=== PATIENT | female | born 1945 | race Caucasian/White ===

== ENCOUNTER 2025-02-28 07:49 | Outpatient (AMB) | payer MEDICARE, SELFPAY ==
--- NOTE | 2025-02-28 07:41 | MHC.OFFVIS ---
Vital Signs 02/28/25 07:43 Height 5 ft 5 in Weight 156 lb 4 oz BMI 26.0 BP 116/78 Blood Pressure Location Rt brachial Position Sitting Pulse 76 Pulse Source Pulse Oximeter Pulse Oximetry (%) 97 Oxygen Delivery Method Room Air Intake Visit Reasons: ENP - Tremor of R hand (CONF.) Intake Note: Tremor of Rt hand Underwater Roboticist Required: No Accompanied by: Self / Same As Patient Allergies acetaminophen (From Percocet) Allergy (Unknown, Verified 02/28/25 07:41) Nausea and Vomiting oxycodone (From Percocet) Allergy (Unknown, Verified 02/28/25 07:41) Nausea and Vomiting propoxyphene Allergy (Unknown, Verified 02/28/25 07:41) Nausea and Vomiting Medication List - Last Reconciled 02/28/25 by Dianne Garcia MD wouvcbrfgm-qgyoksfbtruvf-fyte 50-300-40 mg 1 cap PO Q4-6H PRN cholecalciferol (vitamin D3) 50 mcg PO DAILY diazepam (Valium) 5 mg PO BEDTIME PRN escitalopram oxalate 10 mg PO DAILY multivitamin 1 tab PO DAILY naproxen 500 mg PO BID omeprazole 40 mg PO DAILY turmeric mg PO zoledronic cawp-srxnxvol-xrapz 5 mg/100 mL (Reclast) ea IV HPI Comments Details: 80y/o Right handed female comes for evaluation of tremors in her right hand about 6 mths ago . Now she also feels some tremors in her left hand . It is mostly with action and posture. she has cervical and lumbar issues with surgeries . Speech- normal No drooling Memory- mild sleep- has trouble falling asleep , snoring , hypersomnia- had Sleep study 10 years ago - diagnosed with MILTON - tried cPAP but could not tolerate she also has vivid dreams. No acting out she has depression and anxiety since her - on escitalopram Hand writing- messy Utensils- normal No problems with personal hygiene , shower Gait is good she has friend with MS and was helping her get into the car she tripped on the curb and fell - 3-4 weeks ago - no increased headaches. No double vision or dizziness. she is having some issues with right eye and has blurred vision and has scotomas Her father had tremors No exposure to neuroleptics, lthium depakote etc. [facility] Medical History (Updated 02/28/25 @ 09:24 by Dianne Garcia MD) Coarse tremors Occasional tremors Dyslipidemia Vitamin D deficiency Migraine headache Insomnia Osteoporosis Spinal stenosis Arthritis Breast cancer Cervical spondylosis Osteoarthritis cervical spine Compression fracture of lumbar vertebra Surgical History Hx of tonsillectomy H/O kyphoplasty Total knee replacement status History of lumpectomy History of total left hip replacement History of total right hip replacement Family History Father CHF (congestive heart failure) Mother Esophageal cancer Social History Alcohol intake: current Comment: socially Patient Tobacco Use Status: Former Tobacco user Physical Exam Vital Signs: Last Vital Signs Pulse 76 02/28/25 07:43 BP 116/78 02/28/25 07:43 Pulse Ox 97 02/28/25 07:43 Oxygen Delivery Method Room Air 02/28/25 07:43 BMI result Body Mass Index 26.0 Const Orientation/consciousness: patient oriented x3 Eyes Pupils: Equal, round and reactive pupils present Neuro Other: Mild Right postural tremors Cog wheel rigidity 1 + on right Gait normal Normal voice FFM and foot taps normal General: patient oriented x3, moves all extremities and no focal motor deficits Cranial nerves: Yes Facial sensation intact/muscles of mastication intact, Yes Equal, round and reactive pupils present, Yes Bilaterally intact EOM present, Yes Nystagmus not present, Yes Normal facial strength present, Yes Midline tongue present and Yes Ability to bilaterally elevate shoulders present Cognition (Neuro): normal cognition Gait exam (Neuro): Antalgic gait present Motor exam (neuro): 5/5 motor strength present throughout Deep tendon reflexes (DTR's): Right triceps reflex intensity grade: 1+, Left triceps reflex intensity grade: 1+, Rt Biceps (C5, C6): 1+, Left biceps reflex intensity grade: 1+, Right brachioradialis reflex intensity grade: 1+, Left brachioradialis reflex intensity grade: 1+, Right patellar reflex intensity grade: 1+ and Left patellar reflex intensity grade: 1+ Coordination: ljjqty-ui-dymh test normal Assessment & Plan Assessment & Plan (1) Coarse tremors: Comment: ? senile tremors Code(s): G25.2 - Other specified forms of tremor Category: Medical Plan I will evaluate her with MRI will hold off on medications for now No evidence of parkinsons on todays visit. Orders: Orders MR head/brain wo con Today R25.1 - Tremor, unspecified Coding Level of Care Code New Pt Level 4 (36050) Diagnoses Coarse tremors G25.2
[2025-02-28 07:43] VITALS: BP 116/78; PULSE 76; O2SAT 97; BMI 26.0
--- OUTSIDE RECORDS SUMMARY | 2025-02-28 07:53 | XMS_ITS | Clinical Summary ---
Author Organization [facility] Address [address] [place] [address] Care Team Providers Care Veneer Jointer Helper Name Role Phone Cleveland Heaton MD Primary Care Provider + [phone] Allergies No known active allergies Medications Medication Sig Dispensed Refills Start Date End Date Status Awwnezslgh-Ukguhng-Nx ffeine (FIORINAL PO) Take by mouth. 0 Active Naproxen (NAPROSYN PO) Take by mouth. 0 Active DiazePAM (VALIUM PO) Take by mouth. 0 Active PredniSONE 10 MG (21) TBPK Take by mouth. 0 Active Cholecalciferol (VITAMIN D3) 5000 UNITS TABS Take by mouth. 0 Active dexamethasone (DECADRON) 4 MG tablet Take 1 tablet (4 mg total) by mouth 2 (two) times a day with meals. 20 tablet 1 12/16/2018 Active Multiple Vitamin (MULTIVITAMIN ADULT PO) Take by mouth. 0 Active Coenzyme Q10 (COQ10 PO) Take by mouth. 0 Active Cyanocobalamin (vitamin B-12) 100 MCG TABS Take by mouth. 0 Active zoledronic acid (Reclast) 5 MG/100ML SOLN IVPB Inject 100 mL (5 mg total) into the vein once. 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 breast 11/06/2016 Social History Tobacco Use Types Packs/Day Years Used Date Smoking Tobacco: Never Smokeless Tobacco: Never Alcohol Use Standard Drinks/Week Comments Yes 0 (1 standard drink = 0.6 oz pur e alcohol) socially Sex and Gender Information Value Date Recorded Sex Assigned at Not on file Gender Identity Not on file Sexual Orientation Not on file Job Start Date Occupation Industry Not on file Not on file Not on file Last Filed Vital Signs Vital Sign Reading Time Taken Comments Blood Pressure 141/69 01/28/2023 11:12 AM EDT Pulse 81 01/28/2023 11:12 AM EDT Temperature 36.8 C (98.2 F) 01/28/2023 11:12 AM EDT Respiratory Rate 20 09/30/2021 10:26 AM EDT Oxygen Saturation 98% 01/28/2023 11:12 AM EDT Inhaled Oxygen Concentration - - Weight 70.5 kg (155 lb 6.4 oz) 01/28/2023 11:12 AM EDT Height 165.1 cm (5' 5 ) 01/28/2023 11:12 AM EDT Body Mass Index 25.86 01/28/2023 11:12 AM EDT Plan of Treatment Health Maintenance Due Date Last Done Comments COVID-19 Vaccine (#1) 1950 Pneumococcal Vaccine (1 of 2 - PCV) 1951 Depression Screening 1957 Preventative Health Evaluation 1963 DTap / Tdap / Td (1 - Tdap) 02/06/1964 Shingrix-Zoster Vaccine (1 of 2) 02/06/1964 Fall Risk Assessment 2010 Osteoporosis Screening (DEXA Scan) 2010 RSV Adult > 60+ Yrs or Pregn ant (1 - 1-dose 75+ series) 02/06/2020 Influenza Vaccine (#1) 2024 Hepatitis B Vaccines Aged Out No long er eligible based on patient's age to complete this topic RSV Ped < 20 months Aged Out No longe r eligible based on patient's age to complete this topic Care Teams Veneer Jointer Helper Relationship Specialty Start Date End Date Cleveland Heaton MD PCP - General Internal Medicine 11/06/16
--- OUTSIDE RECORDS SUMMARY | 2025-02-28 07:53 | XMS_ITS | Clinical Summary ---
Author Organization [facility] Address [address] [place] [address] Phone Care Team Providers Care Frame Catcher Name Role Phone Cleveland Heaton MD Primary Care Provider + [phone] Allergies No known active allergies Medications butalbital/aspiri n/caffeine (FIORINAL ORAL) Take by mouth. Active cholecalciferol (VITAMIN D-3) 5,000 Units tablet Take by mouth. Active coenzyme Q-10 10 mg capsule Take by mouth. Active diazepam (VALIUM ORAL) Take by mouth. Active multivit-min/iron /folic acid/K (ADULTS MULTIVITAMIN ORAL) Take by mouth. Active naproxen (NAPROSYN ORAL) Take by mouth. Active zoledronic acid (RECLAST) 5 mg/100 mL piggyback Inject 100 mL (5 mg total) into the vein once. Yearly Active escitalopram (LEXAPRO) 10 mg tablet Take 1 tablet (10 mg total) by mouth 1 (one) time each day. 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 (CMS/HCC V24, CMS/HCC V28) 11/06/2016 Encounters Date Type Department Care Team Description 01/26/2025 7:47 AM EDT - 01/26/2025 11:59 PM EDT Hospital Encounter [facility] MRI [address] [place] [address] Other specified diseases of pancreas Discharge Disposition: Home or Self Care 12/12/2024 1:35 PM EDT - 12/12/2024 11:59 PM EDT Hospital Encounter [facility] [address] [place] [phone] Malignant neoplasm of central portion of left female breast, unspecified estrogen receptor status ([facility] V24, [facility] V28); Encounter for screening mammogram for malignant neoplasm of breast Discharge Disposition: Home or Self Care from Last 3 Months Surgical History Surgery Date Site/Laterality Comments TOTAL KNEE ARTHROPLASTY PROCEDURE:TOTAL KNEE ARTHROPLASTY STEREOTACTIC CORE BIOPSY Left BREAST LUMPECTOMY 03/29/2005 - 03/28/2006 Left Medical History Medical History Date Comments Migraines DX:Migraines Breast cancer ([facility] V24, [facility] V28) DX:Breast cancer ([facility]) Social History Tobacco Use Types Packs/Day Years Used Date Smoking Tobacco: Never Smokeless Tobacco: Never Alcohol Use Standard Drinks/Week Comments Yes 0 (1 standard drink = 0.6 oz pur e alcohol) Comments No Sex and Gender Information Value Date Recorded Sex Assigned at Not on file Legal Sex Female 1:20 AM EST Gender Identity Not on file Sexual Orientation Not on file Obstetrics History Para Term AB IAB SAB Ectopic Multiple Livin g Live Births 0 Last Filed Vital Signs Vital Sign Reading Time Taken Comments Blood Pressure 129/66 06/13/2024 10:30 AM EDT Pulse 70 06/13/2024 10:30 AM EDT Temperature 37.2 C (99 F) 06/13/2024 10:30 AM EDT Respiratory Rate - - Oxygen Saturation 97% 06/13/2024 10:30 AM EDT Inhaled Oxygen Concentration - - Weight 70.3 kg (155 lb) 12/12/2024 2:04 PM EDT Height 165.1 cm (5' 5 ) 12/12/2024 2:04 PM EDT Body Mass Index 25.79 12/12/2024 2:04 PM EDT Plan of Treatment Upcoming Encounters Date Type Department Care Team (Late st Contact Info) Description 06/14/2025 9:30 AM EDT Office Visit [facility] Hematology Oncology [address] [place] [phone] Katherin Dooley DO [address] [place] [address] Health Maintenance Due Date Last Done Comments DTaP,Tdap,and Td Vaccines (1 - Tdap) 02/06/1964 Pneumococcal Vaccine: 50+ Years (1 of 2 - PCV) 02/06/1964 Zoster Vaccines (1 of 2) 02/06/1964 RSV Immunization Adult Patients (1 - 1-dose 75+ series) 02/06/2020 Falls Risk Assessment 03/05/2022 Medicare Annual Wellness Visit 03/05/2022 Social Influencers of Health Screening 03/05/2022 Depression Screening 03/29/2024 COVID-19 Vaccine ( season) 2024 01/30/2022, 07/15/2021, 12/31/2020, Additional history exists Osteoporosis Screening (Bone Density Screening) 12/08/2033 12/09/2023, 10/16/2021, 05/18/2018 Influenza Vaccine Completed 01/23/2025, , 01/01/2023, Additional history exists HIB Vaccines Aged Out No longer eligi ble based on patient's age to complete this topic HPV Vaccines Aged Out No longer eligi ble based on patient's age to complete this topic Hepatitis A Vaccines Aged Out No long er eligible based on patient's age to complete this topic Hepatitis B Vaccines Aged Out No long er eligible based on patient's age to complete this topic IPV Vaccines Aged Out No longer eligi ble based on patient's age to complete this topic MMR Vaccines Aged Out No longer eligi ble based on patient's age to complete this topic Meningococcal ACWY Vaccine Aged Out N o longer eligible based on patient's age to complete this topic Meningococcal B Vaccine Aged Out No l onger eligible based on patient's age to complete this topic RSV Immunization Patients Under 20 months Aged Out No longer eligible based on patient's age to complete this topic Varicella Vaccines Aged Out No longer eligible based on patient's age to complete this topic Procedures Procedure Name Priority Date/Time Associated Diagnosis Comments MR ABDOMEN WO AND W CONTRAST Routine 01/26/2025 10:35 AM EDT Other specified diseases of pancreas MG MAMMO DIGITAL SCREENING W DAVID BILAT Routine 12/12/2024 2:24 PM EDT Malignant neoplasm of central portion of left female breast, unspecified estrogen receptor status (CMS/HCC V24, CMS/HCC V28) Encounter for screening mammogram for malignant neoplasm of breast MAGNUS DEXA AXIAL SKELETON Routine 12/09/2023 8:48 AM EDT Age-related osteoporosis without current pathological fracture from Last 3 Months or Most Recently Relevant to Health Maintenance Results * MR Abdomen wo and w Contrast (01/26/2025 10:35 AM EDT) Anatomical Region Laterality Modality Body Magnetic Resonan ce 01/30/2025 5:22 PM EST Impressions 01/31/2025 11:32 AM EST The pancreas is abnormal. I suspect there has been a previous episode of pancreatitis or injury with subsequent localized atrophy involving a segment of the pancreatic body. There is no discrete mass at the change in caliber. There are some prominent pancreatic duct radicals at the change in caliber. The appearance is similar to 03/11/22. -------- FINAL REPORT -------- Dictated By: Mendez Forrester Dictated Date: 01/30/2025 17:22 ET Assigned Physician: Mendez Forrester Reviewed and Electronically Signed By: Mendez Forrester Signed Date: 01/31/2025 11:32 ET Workstation ID: [id number] Transcribed By: Self Edit Transcribed Date: 01/30/2025 17:37 ET Narrative 01/31/2025 11:32 AM EST EXAMINATION: MRI ABDOMEN WITHOUT AND WITH IV CONTRAST CLINICAL INFORMATION: Pancreatic mass. The report of chest CT performed at [facility] 01/18/25 describes a 2.6 cm soft tissue density nodule in the pancreatic body with a background of pancreatic fatty atrophy COMPARISON: Previous CT from [facility] has been requested. Comparison with portions of CT 01/06/24 and 03/11/[address] performed without contrast 01/18/25 has become available. TECHNIQUE: Anatomic and fluid sensitive MR sequences targeting the region of the pancreas was obtained on a high-field platform. MRCP was performed. Imaging before and after the IV administration of contrast. Amount of IV contrast: 15 mL Type of contrast: Dotarem Volume of contrast discarded: 0 mL FINDINGS: LIVER: The right lobe of the liver measures 15.0 cm. The liver contour appears smooth. The background hepatic signal appears homogeneous. There may be some fatty change in the liver. There is no suspicious focal liver lesion. BILIARY TRACT: There is no cholelithiasis. There is no biliary dilation. MRCP: There is no choledocholithiasis or biliary stricture. The pancreatic duct is uniform caliber in the pancreatic head, neck and proximal body. There is some prominence of the secondary pancreatic duct radicals in the pancreatic distal body. There is localized pancreatic atrophy in the distal pancreatic body. There is no discrete mass demonstrated at the change in caliber. SPLEEN: No suspicious abnormality. PANCREAS: There is no discrete pancreatic mass. As described there is uniform smooth pancreatic duct in the pancreatic head, neck and proximal body. There is some prominence of the pancreatic duct radicals in the distal pancreatic body. There is some segmental atrophy of the pancreas and the distal pancreatic body. There is some parenchyma present in the pancreatic tail. No peripancreatic fluid collection. ADRENAL GLANDS: No suspicious abnormality. KIDNEYS: There are parapelvic cysts. There is no suspicious solid renal mass. The kidneys enhance symmetrically. GASTROINTESTINAL TRACT: No definite bowel wall thickening. No suspicious abnormality of the stomach. ABDOMINAL WALL: No significant hernia is appreciated. LYMPHOVASCULAR STRUCTURES AND FLUID: There is no abdominal aortic aneurysm. There are no enlarged lymph nodes. There is no free intraperitoneal fluid. MUSCULOSKELETAL: There are endplate compression deformities at multiple levels. There may have been previous opaque cement placement. VISUALIZED LOWER CHEST: No suspicious abnormality demonstrated Procedure Note Mendez Forrester MD - 01/31/2025 EXAMINATION: MRI ABDOMEN WITHOUT AND WITH IV CONTRAST CLINICAL INFORMATION: Pancreatic mass. The report of chest CT performed at [facility] 01/18/25describes a 2.6 cm soft tissue density nodule in the pancreatic body witha background of pancreatic fatty atrophy COMPARISON: Previous CT from [facility] has been requested. Comparison with portionsof CT 01/06/24 and 03/11/[address] performed without contrast 01/18/25 has becomeavailable. TECHNIQUE: Anatomic and fluid sensitive MR sequences targeting the region of thepancreas was obtained on a high-field platform. MRCP was performed. Imaging before and after the IV administration of contrast. Amount of IV contrast: 15 mL Type of contrast: Dotarem Volume of contrast discarded: 0 mL FINDINGS: LIVER: The right lobe of the liver measures 15.0 cm. The liver contourappears smooth. The background hepatic signal appears homogeneous. There may be some fatty change in the liver. There is no suspicious focal liver lesion. BILIARY TRACT: There is no cholelithiasis. There is no biliarydilation. MRCP: There is no choledocholithiasis or biliary stricture. Thepancreatic duct is uniform caliber in the pancreatic head, neck andproximal body. There is some prominence of the secondary pancreatic ductradicals in the pancreatic distal body. There is localized pancreaticatrophy in the distal pancreatic body. There is no discrete massdemonstrated at the change in caliber. SPLEEN: No suspicious abnormality. PANCREAS: There is no discrete pancreatic mass. As described there isuniform smooth pancreatic duct in the pancreatic head, neck and proximalbody. There is some prominence of the pancreatic duct radicals in thedistal pancreatic body. There is some segmental atrophy of the pancreasand the distal pancreatic body. There is some parenchyma present in thepancreatic tail. No peripancreatic fluid collection. ADRENAL GLANDS: No suspicious abnormality. KIDNEYS: There are parapelvic cysts. There is no suspicious solid renalmass. The kidneys enhance symmetrically. GASTROINTESTINAL TRACT: No definite bowel wall thickening. No suspiciousabnormality of the stomach. ABDOMINAL WALL: No significant hernia is appreciated. LYMPHOVASCULAR STRUCTURES AND FLUID: There is no abdominal aorticaneurysm. There are no enlarged lymph nodes. There is no freeintraperitoneal fluid. MUSCULOSKELETAL: There are endplate compression deformities at multiplelevels. There may have been previous opaque cement placement. VISUALIZED LOWER CHEST: No suspicious abnormality demonstrated IMPRESSION: The pancreas is abnormal. I suspect there has been a previous episode ofpancreatitis or injury with subsequent localized atrophy involving asegment of the pancreatic body. There is no discrete mass at the change incaliber. There are some prominent pancreatic duct radicals at the changein caliber. The appearance is similar to 03/11/22. -------- FINAL REPORT -------- Dictated By: Mendez Forrester Dictated Date: 01/30/2025 17:22 ET Assigned Physician: Mendez Forrester Reviewed and Electronically Signed By: Mendez Forrester Signed Date: 01/31/2025 11:32 ET Workstation ID: [id number] Transcribed By: Self Edit Transcribed Date: 01/30/2025 17:37 ET Cleveland Heaton MD IMG MRI PROCEDURES Final Res ult * MG Mammo Digital Screening w David bilat (12/12/2024 2:24 PM EDT) Anatomical Region Laterality Modality Breast Bilateral Mammography 12/12/2024 3:45 PM EDT Impressions 12/12/2024 3:47 PM EDT No evidence of breast malignancy. BI-RADS CATEGORY: 2 - BENIGN RECOMMENDATION: Screening bilateral mammogram is recommended in 1 year. Mammo Location: [facility], [address] [place] [address], [facility], . -------- FINAL REPORT -------- Dictated By: Mala Doyle Dictated Date: 12/12/2024 15:45 ET Assigned Physician: Mala Doyle Reviewed and Electronically Signed By: Mala Doyle Signed Date: 12/12/2024 15:47 ET Workstation ID: [id number] Transcribed By: Self Edit Transcribed Date: 12/12/2024 15:45 ET Narrative 12/12/2024 3:47 PM EDT CLINICAL: 79 years old, Female, routine annual exam. History of left-sided breast cancer and 2006 COMPARISON: Multiple prior studies dating back to 2019. TECHNIQUE: Bilateral MLO and CC views were obtained digitally with 3-D mammogram (digital breast tomosynthesis). Computer-aided detection was utilized in evaluation of this exam (CAD). FINDINGS: There is no evidence of suspicious mass or architectural distortion. No worrisome calcifications are evident. There has been no significant change from prior exam(s). Stable postsurgical changes in the left breast. BREAST DENSITY: A - The breasts are almost entirely fatty. Procedure Note Mala Doyle MD - 12/12/2024 CLINICAL: 79 years old, Female, routine annual exam. History ofleft-sided breast cancer and 2006 COMPARISON: Multiple prior studies dating back to 2019. TECHNIQUE: Bilateral MLO and CC views were obtained digitally with 3-Dmammogram (digital breast tomosynthesis). Computer-aided detection wasutilized in evaluation of this exam (CAD). FINDINGS: There is no evidence of suspicious mass or architectural distortion. Noworrisome calcifications are evident. There has been no significantchange from prior exam(s). Stable postsurgical changes in the leftbreast. BREAST DENSITY: A - The breasts are almost entirely fatty. IMPRESSION: No evidence of breast malignancy. BI-RADS CATEGORY: 2 - BENIGN RECOMMENDATION: Screening bilateral mammogram is recommended in 1 year. Mammo Location: [facility], [address] [place] [address], [id number], . -------- FINAL REPORT -------- Dictated By: Mala Doyle Dictated Date: 12/12/2024 15:45 ET Assigned Physician: Mala Doyle Reviewed and Electronically Signed By: Mala Doyle Signed Date: 12/12/2024 15:47 ET Workstation ID: [id number] Transcribed By: Self Edit Transcribed Date: 12/12/2024 15:45 ET us Katherin Dooley DO IMG BI PROCEDURES Fin al Result * MAGNUS DEXA AXIAL SKELETON (12/09/2023 8:48 AM EDT) Anatomical Region Laterality Modality Mammography 12/02/2023 1:41 PM EDT Narrative 12/09/2023 8:48 AM EDT [facility] Diagnostic Imaging Department [address] [place] [address] [id number] Patient: JANET MOTAO.B./Age/Sex: 1945 - 78 - F Unit#: [id number] Location/Status: SPDIMA/REG I [facility]em[facility] Ordering Physician: FRANCISCO COSTA MD [facility] Dexa Axial Skeleton - 12/02/23 - 149 Report Status:Signed HISTORY: The patient is a 78-year-old postmenopausal female with clinical concern for metabolic bone disease. FINDINGS: Dual energy x-ray absorptiometry of the lumbar spine and left femur is performed. The mean bone mineral density at L1-3 (with the exclusion of L2) is 1.282 gm/cm2 which is 110% of that of young normals and 132% of that of age matched controls. This yields a T-score of 1.0 and a Z-score of 2.6 and there is therefore no evidence of osteoporosis or osteopenia here. The mean bone mineral density of the left femur is 0.815 gm/cm2 which is 81% of that of young normals and 105% of that of age matched controls. This yields a T-score of -1.5 and a Z-score of 0.3 which is diagnostic of osteopenia. However, the T-score of the left femoral neck is -2.5 which is diagnostic of osteoporosis. IMPRESSION: 1. Osteoporosis. There has been an increase of 13.3% in bone mineral density in the lumbar spine since the prior examination of 10/15/2021. There has been a decrease of 3.1% in bone mineral density in the left femur. 2. FRAX analysis yields a 10-year probability of major osteoporotic fracture of 19.6% and a 10-year probability of hip fracture of 6.9%. Code 55014 Dictating Physician: REBECCA HAM MD Electronically Signed by: REBECCA HAM MD [facility] Date/Time: 12/09/23845 Sign date/Time: 12/09/2348 Procedure Note Rebecca Ham MD - 01/12/2024 [facility] Diagnostic Imaging Department [address] [place] [id number] Patient: HOLGER HERRERAJANET /Age/Sex: 1945 78 - F Unit#: [id number] Location/Status: [facility] CLI Mnemonic/Ordering Site: [facility] Ordering Physician: FRANCISCO COSTA MD [facility] Dexa Axial Skeleton - 12/02/23 - 1625 Report Status:Signed HISTORY: The patient is a 78-year-old postmenopausal female withclinical concern for metabolic bone disease. FINDINGS: Dual energy x-ray absorptiometry of the lumbar spine and leftfemur is performed. The mean bone mineral density at L1-3 (with the exclusion ofL2) is 1.282 gm/cm2 which is 110% of that of young normals and 132% of that ofage matched controls. This yields a T-score of 1.0 and a Z-score of 2.6 andthere is therefore no evidence of osteoporosis or osteopenia here. The mean bone mineral density of the left femur is 0.815 gm/cm2 which is81% of that of young normals and 105% of that of age matched controls. Thisyields a T-score of -1.5 and a Z-score of 0.3 which is diagnostic of osteopenia.However, the T-score of the left femoral neck is -2.5 which is diagnostic of osteoporosis. IMPRESSION: 1. Osteoporosis. There has been an increase of 13.3% in bone mineraldensity in the lumbar spine since the prior examination of 10/15/2021. There hasbeen a decrease of 3.1% in bone mineral density in the left femur. 2. FRAX analysis yields a 10-year probability of major osteoporoticfracture of 19.6% and a 10-year probability of hip fracture of 6.9%. Code 24688 Dictating Physician: REBECCA HAM MD Electronically Signed by: REBECCA HAM MD Dic Date/Time: 12/09/23845 Sign date/Time: 12/09/23847 Francisco Costa MD IMG BI PROCEDURES Fi nal Result from Last 3 Months or Most Recently Relevant to Health Maintenance Insurance MEDICARE [facility] Care Teams Frame Catcher Relationship Specialty Start Date End Date Cleveland Heaton MD [address] [place] [address] PCP - General Internal Medicine 07/27/06
--- OUTSIDE RECORDS SUMMARY | 2025-02-28 07:53 | XMS_ITS | Clinical Summary ---
Author Organization [facility] Address [address] [place] [address] Care Team Providers Care Music Composition Teacher Name Role Phone Cleveland Heaton MD Primary Care Provider [phone] Social History Tobacco Use Types Packs/Day Years Used Date Smoking Tobacco: Never Assessed Comments Unknown Sex and Gender Information Value Date Recorded Sex Assigned at Female 01/30/2025 10:30 AM EST Legal Sex Female 5:02 PM EST Gender Identity Female 01/30/2025 10:30 AM EST Sexual Orientation Other 01/30/2025 10 :30 AM EST Plan of Treatment Upcoming Encounters Date Type Department Care Team (Late st Contact Info) Description 04/25/2025 3:30 PM EST Consult [facility] [address] [phone] Cheikh Hurt MD [address] [facility] [address] [place] [address] Health Maintenance Due Date Last Done Comments Advance Care Planning 1945 DTaP/Tdap/Td Vaccines (1 - Tdap) 02/06/1964 Pneumococcal Vaccines 50+ (1 of 1 - PCV) 1995 Zoster (Shingles) Vaccine (1 of 2) 1995 DXA Bone Density (Females,Ag es 65 and older) 2010 RSV Vaccine 50 years and old er and Patients (1 - 1-dose 75+ series) 02/06/2020 Influenza Vaccine 10/27/2024 COVID-19 Vaccine ( - 2023-2 5 season) 2024 Hepatitis B Vaccines Aged Out No long er eligible based on patient's age to complete this topic Procedures Procedure Name Priority Date/Time Associated Diagnosis Comments CT SCAN EXTERNAL RESULT Routine 01/18/2025 9:03 AM EDT from Last 3 Months Results * CT Scan External Result (01/18/2025 9:03 AM EDT) Anatomical Region Laterality Modality Computed Tomogra phy us External Provider MD PEDRO CT ORDERABLES Final Res ult from Last 3 Months Insurance Care Teams Music Composition Teacher Relationship Specialty Start Date End Date Cleveland Heaton MD [address] [place] [phone] PCP - General Internal Medicine 01/30/25
--- OUTSIDE RECORDS SUMMARY | 2025-02-28 07:53 | XMS_ITS | Clinical Summary ---
Author Organization [facility] Address [address] [facility] [address] [place] [phone] Phone Care Team Providers Care Fingerprint Expert Name Role Phone Cleveland Heaton MD Primary Care Provider Allergies Active Allergy Reactions Criticality Noted Date Comments Meperidine GI Upset 09/16/2005 Percocet (Oxycodone-Acetaminophen) GI Upset 0 09/16/2005 Medications No known medications Active Problems Problem Noted Date Diagnosed Date Arthritis 09/16/2005 Overview (05/19/2014): Arthritis Migraine 09/16/2005 Overview (05/19/2014): Migraine headache 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 Not on sebas e 06/09/2024 Are you concerned about learning? Not on file 06/09/2024 No 06/09/2024 No 06/09/2024 Digital Access Answer Date Recorded No 06/09/2024 No 06/09/2024 Reliable internet access at home? Not on file 06/09/2024 Device with a working camera? Not on file Comments Unknown Sex and Gender Information Value Date Recorded Sex Assigned at Not on file Legal Sex Female 5:06 PM EST Gender Identity Not on file Sexual Orientation Not on file Last Filed Vital Signs Vital Sign Reading Time Taken Comments Blood Pressure 131/95 08/09/2024 11:30 AM EDT Pulse - - Temperature - - Respiratory Rate - - Oxygen Saturation - - Inhaled Oxygen Concentration - - Weight - - Height - - Body Mass Index - - Plan of Treatment Upcoming Encounters Date Type Department Care Team (Late st Contact Info) Description 03/15/2025 11:00 AM EST Office Visit [facility] [address] [address] Courtney Young MD [address] [place] [address], [address] [address] [email or web address] Health Maintenance Due Date Last Done Comments Adult Td,Tdap Booster 1945 LIPID PANEL 1945 DEPRESSION SCREENING 1957 SMOKING STATUS SCREENING (On ce After 26 Yrs) 1971 PNEUMOCOCCAL VACCINES (50+ y ears) (1 of 1 - PCV) 1995 ZOSTER VACCINES (1 of 2) 1995 OSTEOPOROSIS SCREENING INITI AL (ONE-TIME) 2010 RSV VACCINE (1 - 1-dose 75+ series) 02/06/2020 INFLUENZA VACCINE (#1) 2024 COVID-19 VACCINE (1 - 2024-2 6 season) 2024 HEPATITIS A VACCINES Aged Out No long er eligible based on patient's age to complete this topic HIB VACCINES Aged Out No longer eligi ble based on patient's age to complete this topic MENINGOCOCCAL VACCINES (ACWY) Aged Out No longer eligible based on patient's age to complete this topic MENINGOCOCCAL VACCINES (B) Aged Out N o longer eligible based on patient's age to complete this topic Medical Devices Not on file Insurance MEDICARE PART A & B [id number] MEDEX SUPPLEMENT MEDICARE PART A & B [id number] MEDEX SUPPLEMENT MEDICARE PART A & B [id number] MEDEX SUPPLEMENT MEDICARE PART A & B [id number] MEDEX SUPPLEMENT MEDICARE PART A & B [facility] MEDEX SUPPLEMENT MEDICARE PART A & B [employer] MEDEX SUPPLEMENT Care Teams Fingerprint Expert Relationship Specialty Start Date End Date Cleveland Heaton MD [address] [place] [address] PCP - General Internal Medicine 06/08/24 Additional Source Comments The information contained in this document represents components of the legal health record. It is not the complete legal health record.[facility]
--- OUTSIDE RECORDS SUMMARY | 2025-02-28 07:53 | XMS_ITS ---
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 Past Treatment and Therapy Plans No past plan information found. Lifetime Dose Tracking * Chemical Lifetime Dose Automatic Entry Manual Entr y Fluoro Time 1.1 minutes 1.1 minutes 0 minutes Air Kerma 28.51 mGy 28.51 mGy 0 mGy Dose Area Product 5 mGy-cm2 5 mGy-cm2 0 mGy-cm2
--- OUTSIDE RECORDS SUMMARY | 2025-02-28 07:53 | XMS_ITS ---
Author Name [facility] Organization Unknown Care Team Organization Name Specialty Phone Email Start Date End [facility] DONALD LANGE Primary Care 01/30/2025
== END 2025-02-28 08:23 | disposition home or self-care (01) ==
LOC: HO.HSMS 07:49
PROVIDERS: PCP Internal Medicine; Visit Provider Psychiatry & Neurology Neurology
DX: G25.2 Other specified forms of tremor (principal)
CPT/HCPCS: 99204

== ENCOUNTER → 2025-02-28 07:49 | Outpatient (BNVA) | payer MEDICARE, SELFPAY | PROVIDERS: PCP Internal Medicine; Visit Provider Psychiatry & Neurology Neurology | DX: G25.2 Other specified forms of tremor (principal); G47.33 Obstructive sleep apnea (adult) (pediatric); G47.00 Insomnia, unspecified | CPT/HCPCS: 99202 ==